=== PATIENT | female | born 1960 | race Caucasian/White ===

== ENCOUNTER 2017-01-17 10:43 | Emergency (ER) | payer OTHER ==
[~2017-01-17] VITALS: Ht 154.9 cm; Wt 59.0 kg
[~2017-01-17 10:43] MED LIST: ACET-2264 PO; ALPR0.25 PO; ASPI325T4 PO; CITA20TA12 PO; CLOP75TA3 PO; DOXY-182 PO; FAMO20TA13 PO; HYDR-3702 PO; IPRA3AMP11 INH; LISI5TAB14 PO; LOVA20TA2 PO; METO25TA2 PO; MULT-954 PO; PRED20TA PO; SULF1TAB35 PO; TRAZODONE PO; TRM50T PO
[2017-01-17] MEDS ORDERED: HYDROmorphone 1 MG/ML (DILAUDID) SYRINGE IM ONE (11:05)
[2017-01-17] MEDS ORDERED: PROMETHAZINE 25 MG/ML (PHENERGAN) 1 ML VIAL IM ONE (11:05)
[2017-01-17] MEDS ORDERED: HYDR-3702 PO (13:13)
--- NOTE | 2017-01-17 13:20 | Diagnostic Imaging Report ---
RIBS, LEFT 2-3 VIEWS COMPARISON: 2-view chest of 10/29/2015. INDICATION: Posterior rib pain after coughing. TECHNIQUE: 3 views of left ribs. FINDINGS: No left-sided pneumothorax. No acute posterior or lateral rib fracture. Old healed fractures of the lateral left fifth and sixth ribs. IMPRESSION: 1. No pneumothorax on the left. 2. No acute left-sided rib fractures. 3. Old healed fractures of the left fifth and sixth lateral ribs. Dictated by: Dictated on workstation # [id number]
[2017-01-17 13:23] VITALS: BP 142/83
== END 2017-01-17 13:24 | disposition home or self-care (01) ==
LOC: ED 10:45
DX: R07.81 Pleurodynia (principal); R05 Cough
CPT/HCPCS: 71100; 96372; 99283; J1170; J2550